=== PATIENT | male | born 1985 | race Caucasian/White ===

== ENCOUNTER 2023-07-29 11:32 | Emergency (ER) | payer BC ==
[~2023-07-29] VITALS: Ht 175.3 cm; Wt 84.1 kg
[2023-07-29 11:37] VITALS: TEMP 97.7
[2023-07-29 11:57] VITALS: BP 108/71; PULSE 102; RESP 18
[2023-07-29] MEDS ORDERED: BACITRACIN 0.9 GM PACKET OINTMENT TP ONE (12:45)
[2023-07-29] MEDS ORDERED: CEPHALEXIN MONOHYDRATE 500 MG CAPSULE PO ONE (12:45)
[2023-07-29] MEDS ORDERED: CEPH-558 PO ×2 (12:58→13:01)
== END 2023-07-29 13:32 | disposition home or self-care (01) ==
LOC: EMS 11:32
DX: L03.032 Cellulitis of left toe (principal); L03.031 Cellulitis of right toe; L60.9 Nail disorder, unspecified
CPT/HCPCS: 99283

== ENCOUNTER 2023-07-29 14:21 | Inpatient (IN) | payer BC ==
[~2023-07-29] VITALS: Ht 177.8 cm; Wt 93.3 kg
[~2023-07-29 14:21] MED LIST: CEPH-558 PO
[2023-07-29 15:05] LABS: BASOPHILS % (AUTO) 0.9 % (0.0-2.0); EOSINOPHILS % (AUTO) 1.6 % (1.0-6.0); HEMATOCRIT 47.9 % (41-53); HEMOGLOBIN 15.9 g/dL (13.5-17.5); LYMPHOCYTES # (AUTO) 1.9 K/uL (1.0-4.8); LYMPHOCYTES % (AUTO) 18.3 % (22.0-44.0); MEAN CORPUSCULAR HEMOGLOBIN 27.9 pg (26.0-34.0); MEAN CORPUSCULAR HGB CONC 33.1 G/dL (31.0-37.0); MEAN CORPUSCULAR VOLUME 84 fL (80-100); MONOCYTES # (AUTO) 0.8 K/uL (0.1-1.0); MONOCYTES % (AUTO) 7.2 % (2.0-9.0); NEUTROPHILS # (AUTO) 7.6 K/uL (1.8-7.7); PLATELET COUNT (AUTO) 198 K/uL (150-450); RED BLOOD CELL COUNT(AUTO) 5.68 MIL/uL (4.50-5.90); RED CELL DISTRIBUTION WIDTH 14.9 % (11.5-14.5); WHITE BLOOD COUNT (AUTO) 10.5 K/uL (4.5-11.0)
[2023-07-29 15:21] LABS: ANION GAP 9 mmol/L (8-16); CARBON DIOXIDE 25 mmol/L (22-29); CHLORIDE 103 mmol/L (98-107); CREATININE 0.87 mg/dL (0.60-1.30); GLOMERULAR FILTR. RATE CALC > 60 mL/min (>60); GLUCOSE,RANDOM 88 mg/dL (70-110); POTASSIUM 3.8 mmol/L (3.5-5.1); SODIUM SERUM 137 mmol/L (136-145); UREA NITROGEN, BLOOD 17 mg/dL (7-18)
[2023-07-29 15:32] LABS: ALANINE AMINOTRANSFERASE 27 U/L (12-78); ALBUMIN 3.8 g/dL (3.4-5.0); ALKALINE PHOSPHATASE 154 U/L (46-116); ASPARTATE AMINOTRANSFERASE 17 U/L (15-37); BILIRUBIN,TOTAL 0.3 mg/dL (0.1-1.0); TOTAL PROTEIN, SERUM 7.8 g/dL (6.4-8.2)
[2023-07-29 15:44] LABS: ALCOHOL, BLOOD (SERUM) < 3 mg/dL (0-10)
[2023-07-29 16:52] LABS: COVID AG,FIA SOURCE NASOPHARYNGEAL
[2023-07-29 17:13] LABS: APPEARANCE,URINE CLEAR (CLEAR); BILIRUBIN,URINE NEGATIVE (NEGATIVE); COLOR,URINE YELLOW (YELLOW); GLUCOSE, URINE (UA) NEGATIVE (NEGATIVE); KETONES,URINE NEGATIVE (NEGATIVE); LEUKOCYTE ESTERASE ,URINE NEGATIVE (NEGATIVE); NITRATE,URINE NEGATIVE (NEGATIVE); OCCULT BLOOD,URINE NEGATIVE (NEGATIVE); PH,URINE 6.5 (5.0-8.0); PH,URINE DRUG SCREEN 6.5 (5.0-8.0); PROTEIN,URINE 30-70 mg/dL (NEGATIVE); SPECIFIC GRAVITIY, URINE 1.036 (1.003-1.030)
[2023-07-29] MEDS ORDERED: ZOLPIDEM TARTRATE 10 MG TABLET PO PRN (17:15)
[2023-07-29] MEDS ORDERED: LORazepam 2 MG TABLET PO PRN (17:15)
[2023-07-29] MEDS ORDERED: HALOPERIDOL 5 MG TABLET PO PRN (17:15)
[2023-07-29 17:20] LABS: ALCOHOL, URINE DRUG SCREEN NEGATIVE (NEGATIVE); AMPHET/METH SCREEN,URINE NEGATIVE (NEGATIVE); BARBITURATE SCREEN, URINE NEGATIVE (NEGATIVE); BENZODIAZEPINES SCREEN,URINE NEGATIVE (NEGATIVE); CANNABINOID SCREEN,URINE NEGATIVE (NEGATIVE); COCAINE SCREEN,URINE NEGATIVE (NEGATIVE); METHADONE SCREEN, URINE NEGATIVE (NEGATIVE); OPIATE SCREEN,URINE NEGATIVE (NEGATIVE); PHENCYCLIDINE SCREEN,URINE NEGATIVE (NEGATIVE)
[2023-07-29 17:20] LABS: SARS-COV2 (COVID) ANTIGEN,FIA Negative (Negative)
[2023-07-30 00:19] VITALS: BP 121/86; PULSE 96; RESP 18; TEMP 97.1
[2023-07-30] MEDS ORDERED: INFLUENZA VIRUS VACCINE QVS 2023-24 (6MO+)/PF 60 MCG/0.5 ML SYRINGE IM. ONE (05:30)
[2023-07-30 11:07] VITALS: BP 133/60; PULSE 93; RESP 18; TEMP 97
[2023-07-30] MEDS ORDERED: PALIPERIDONE PALMITATE 234 MG/1.5 ML SYRINGE IM ONE (12:00)
[2023-07-30] MEDS: ATROPINE SULFATE 1% 5 ML OPHTHALMIC SOLUTION SL SCH (17:03)
[2023-07-30] MEDS: LORazepam 1 MG TABLET PO SCH (17:08)
[2023-07-30] MEDS: DOCUSATE SODIUM 100 MG CAPSULE PO SCH (17:08)
[2023-07-30] MEDS: FluvoxaMINE MALEATE 50 MG TABLET PO SCH (17:08)
[2023-07-30] MEDS: CloZAPine 100 MG TABLET PO SCH (20:55)
[2023-07-30 22:10] VITALS: BP 132/98; PULSE 96; RESP 18; TEMP 97.6
[2023-07-31 10:37] VITALS: BP 125/80; PULSE 88; RESP 17; TEMP 97.7
[2023-07-31] MEDS: FluvoxaMINE MALEATE 50 MG TABLET PO SCH ×2 (11:33→19:10)
[2023-07-31] MEDS: LORazepam 1 MG TABLET PO SCH ×3 (11:35→19:10)
[2023-07-31] MEDS: ATROPINE SULFATE 1% 5 ML OPHTHALMIC SOLUTION SL SCH ×2 (11:35→19:10)
[2023-07-31] MEDS: DOCUSATE SODIUM 100 MG CAPSULE PO SCH ×2 (11:35→19:10)
[2023-07-31] MEDS ORDERED: HYDROCORTISONE 1% 30 GM OINTMENT TP PRN (15:30)
[2023-07-31] MEDS: CloZAPine 100 MG TABLET PO SCH (20:40)
[2023-07-31 22:53] VITALS: BP 127/74; PULSE 82; RESP 18; TEMP 97.7
[2023-08-01] MEDS: ATROPINE SULFATE 1% 5 ML OPHTHALMIC SOLUTION SL SCH ×2 (09:03→16:25)
[2023-08-01] MEDS: LORazepam 1 MG TABLET PO SCH ×3 (09:03→16:23)
[2023-08-01] MEDS: DOCUSATE SODIUM 100 MG CAPSULE PO SCH ×2 (09:03→16:23)
[2023-08-01] MEDS: FluvoxaMINE MALEATE 50 MG TABLET PO SCH ×2 (09:05→16:24)
[2023-08-01 11:04] VITALS: BP 115/7; PULSE 73; RESP 18; TEMP 97.2
[2023-08-01 20:00] VITALS: BP 101/73; PULSE 83; RESP 19; TEMP 97.3
[2023-08-01] MEDS: CloZAPine 100 MG TABLET PO SCH (20:57)
[2023-08-02] MEDS: DOCUSATE SODIUM 100 MG CAPSULE PO SCH ×2 (09:53→16:59)
[2023-08-02] MEDS: LORazepam 1 MG TABLET PO SCH ×3 (09:53→16:59)
[2023-08-02] MEDS: FluvoxaMINE MALEATE 50 MG TABLET PO SCH ×2 (09:54→16:59)
[2023-08-02] MEDS: ATROPINE SULFATE 1% 5 ML OPHTHALMIC SOLUTION SL SCH ×2 (09:55→17:00)
[2023-08-02 10:39] VITALS: BP 109/69; PULSE 96; RESP 18; TEMP 97.5
[2023-08-02 20:00] VITALS: BP 131/89; PULSE 107; RESP 18; TEMP 97
[2023-08-02] MEDS: CloZAPine 100 MG TABLET PO SCH (20:59)
[2023-08-03 09:30] VITALS: BP 106/72; PULSE 86; RESP 17; TEMP 97.6
[2023-08-03] MEDS: ATROPINE SULFATE 1% 5 ML OPHTHALMIC SOLUTION SL SCH ×2 (09:32→17:30)
[2023-08-03] MEDS: DOCUSATE SODIUM 100 MG CAPSULE PO SCH ×2 (09:32→17:30)
[2023-08-03] MEDS: LORazepam 1 MG TABLET PO SCH ×3 (09:32→17:30)
[2023-08-03] MEDS: FluvoxaMINE MALEATE 50 MG TABLET PO SCH ×2 (09:36→17:30)
[2023-08-03] MEDS ORDERED: FLUV50 PO (16:00)
[2023-08-03] MEDS ORDERED: CLOZ100T61 PO (16:00)
[2023-08-03] MEDS ORDERED: ATRO3.5O3 SL (16:00)
[2023-08-03] MEDS ORDERED: LORA-1000 PO (16:00)
[2023-08-03] MEDS ORDERED: DOCU-385 PO (16:00)
[2023-08-03] MEDS: CloZAPine 100 MG TABLET PO SCH (20:53)
[2023-08-03 21:10] VITALS: BP 113/81; PULSE 91; RESP 18; TEMP 97.6
[2023-08-04] MEDS: LORazepam 1 MG TABLET PO SCH (08:55)
[2023-08-04] MEDS: DOCUSATE SODIUM 100 MG CAPSULE PO SCH (08:55)
[2023-08-04] MEDS: FluvoxaMINE MALEATE 50 MG TABLET PO SCH (08:56)
[2023-08-04] MEDS: ATROPINE SULFATE 1% 5 ML OPHTHALMIC SOLUTION SL SCH (08:57)
== END 2023-08-04 16:58 | DRG 885 ==
LOC: EMS 14:23 → 3EI 17:37
PROVIDERS: ADMIT Psychiatry & Neurology Child & Adolescent Psychiatry; ATTEND Psychiatry & Neurology Child & Adolescent Psychiatry
DX: F25.1 Schizoaffective disorder, depressive type (principal); K59.00 Constipation, unspecified; G47.00 Insomnia, unspecified; L40.9 Psoriasis, unspecified; F25.0 Schizoaffective disorder, bipolar type; Z20.822 Contact with and (suspected) exposure to COVID-19; Z81.8 Family history of other mental and behavioral disorders; Z91.148 Patient's other noncompliance with medication regimen for other reason
CPT/HCPCS: 80053; 80307; 81003; 84443; 85025; 99285; G0480